=== PATIENT | female | born 1940 | race Hispanic/Latino ===

== ENCOUNTER 2022-04-24 18:45 | Observation (INO) | payer MEDICARE, OTHER ==
[~2022-04-24] VITALS: Ht 154.9 cm; Wt 69.9 kg
[2022-04-24 19:14] LABS: BASOPHILS % 0.5 % (0.0-1.0); EOSINOPHILS # (AUTO) 0.1 (0.0-0.4); EOSINOPHILS % 1.5 % (0.0-6.0); HEMATOCRIT 43.1 % (34.2-44.1); HEMOGLOBIN 14.2 g/dL (12.0-16.0); LYMPHOCYTES % 34.1 % (18.0-39.1); MEAN CORPUSCULAR HEMOGLOBIN 30.1 pg (28-32); MEAN CORPUSCULAR HGB CONC 32.9 g/dL (31-35); MEAN CORPUSCULAR VOLUME 91.5 fL (81-99); MONOCYTES # (AUTO) 0.7 (0.2-0.8); NEUTROPHILS # (AUTO) 4.8 (2.1-6.9); NEUTROPHILS % 55.3 % (38.7-80.0); PLATELET COUNT 154 x10e3/uL (140-360); RED BLOOD COUNT 4.71 x10e6/uL (3.6-5.1); RED CELL DISTRIBUTION WIDTH 12.7 % (11.7-14.4)
[2022-04-24] MEDS ORDERED: DIGOXIN 0.25 MG TAB PO STA (19:25)
[2022-04-24] MEDS ORDERED: DIGOXIN INJ 0.25 MG/ML 2 ML AMP IV STA (19:27)
[2022-04-24 19:33] LABS: ALANINE AMINOTRANSFERASE 12 IU/L (0-55); ALBUMIN/GLOBULIN RATIO 1.2 (0.8-2.0); ALKALINE PHOSPHATASE 85 IU/L (40-150); ANION GAP 17.8 mmol/L (8-16); BLOOD UREA NITROGEN 14 mg/dL (7-26); BUN/CREATININE RATIO 16 (6-25); CALCIUM 9.5 mg/dL (8.4-10.2); CARBON DIOXIDE 25 mmol/L (22-29); CHLORIDE 99 mmol/L (98-107); CREATINE KINASE 32 IU/L (29-168); CREATININE, SERUM 0.85 mg/dL (0.57-1.11); GLUCOSE 98 mg/dL (74-118); POTASSIUM 3.8 mmol/L (3.5-5.1); SODIUM 138 mmol/L (136-145)
[2022-04-24] MEDS ORDERED: DIGOXIN INJ 0.25 MG/ML 2 ML AMP ONE (19:39)
[2022-04-24 19:48] LABS: CREATINE KINASE MB < 1.00 ng/mL (0-4.3)
[2022-04-24] MEDS ORDERED: METOPROLOL TARTRATE INJ 1 MG/ML VIAL IV PRN (20:00)
[2022-04-24] MEDS: SODIUM CHLORIDE 0.9% 1000ML 1,000 ML IV SCH (20:19)
[2022-04-24] MEDS ORDERED: ELIQUIS5 M1 PO (22:24)
[2022-04-24] MEDS ORDERED: FUROSEMIDE40 MG PO (22:24)
[2022-04-24] MEDS ORDERED: LEVOTHYROXINE100 MCG PO (22:24)
[2022-04-24] MEDS ORDERED: ONDANSETRON HCL INJ 2MG/ML 2ML 2 MG/ML VIAL IV PRN (22:30)
[2022-04-24] MEDS ORDERED: ACETAMINOPHEN 325 MG TAB PO PRN (22:30)
[2022-04-24] MEDS ORDERED: LABETALOL HCL 5 MG/ML 20ML VIAL IV PRN (22:30)
[2022-04-24] MEDS: APIXABAN 5 MG TABLET PO SCH (23:44)
[2022-04-25] VITALS (11 sets, daily range): BP systolic 110–137; BP diastolic 50–66
[2022-04-25] MEDS: SODIUM CHLORIDE 0.9% 1000ML 1,000 ML IV SCH ×3 (05:23→23:53)
[2022-04-25 05:48] LABS: BASOPHILS % 0.4 % (0.0-1.0); EOSINOPHILS # (AUTO) 0.1 (0.0-0.4); EOSINOPHILS % 1.5 % (0.0-6.0); HEMATOCRIT 36.5 % (34.2-44.1); HEMOGLOBIN 12.1 g/dL (12.0-16.0); LYMPHOCYTES # (AUTO) 2.1 (1.0-3.2); LYMPHOCYTES % 39.4 % (18.0-39.1); MEAN CORPUSCULAR HEMOGLOBIN 29.6 pg (28-32); MEAN CORPUSCULAR HGB CONC 33.2 g/dL (31-35); MEAN CORPUSCULAR VOLUME 89.2 fL (81-99); MONOCYTES # (AUTO) 0.5 (0.2-0.8); MONOCYTES % 9.9 % (4.4-11.3); NEUTROPHILS # (AUTO) 2.6 (2.1-6.9); NEUTROPHILS % 48.1 % (38.7-80.0); PLATELET COUNT 146 x10e3/uL (140-360); RED BLOOD COUNT 4.09 x10e6/uL (3.6-5.1); RED CELL DISTRIBUTION WIDTH 12.8 % (11.7-14.4)
[2022-04-25] MEDS ORDERED: VITAMIN D362.5 MCG (06:10)
[2022-04-25] MEDS ORDERED: OMEPRAZOLE40 MG PO (06:10)
[2022-04-25] MEDS ORDERED: INDERAL XL80 MG PO (06:10)
[2022-04-25] MEDS ORDERED: NITROGLYCERIN0.4 MG SL (06:10)
[2022-04-25] MEDS ORDERED: ASPIRIN81 MG PO (06:10)
[2022-04-25 06:11] LABS: ALBUMIN 3.1 g/dL (3.5-5.0); ALBUMIN/GLOBULIN RATIO 1.2 (0.8-2.0); ANION GAP 13.8 mmol/L (8-16); CALCIUM 8.3 mg/dL (8.4-10.2); CREATININE, SERUM 0.64 mg/dL (0.57-1.11); POTASSIUM 3.8 mmol/L (3.5-5.1)
[2022-04-25 06:23] LABS: CHOL/HDL RATIO 3.1 (3.0-3.6)
[2022-04-25 06:37] LABS: FREE THYROXINE INDEX 2.5594 (1.4-3.8); THYROID STIMULATING HORMONE 0.964 uIU/mL (0.350-4.940)
[2022-04-25] MEDS: LEVOTHYROXINE SODIUM 100 MCG TAB PO SCH (07:30)
[2022-04-25 07:42] LABS: CREATINE KINASE MB 0.7 ng/mL (0-5.0)
[2022-04-25] MEDS: DOCUSATE SODIUM 100 MG CAP PO SCH (08:21)
[2022-04-25] MEDS: APIXABAN 5 MG TABLET PO SCH ×2 (08:22→16:55)
[2022-04-25] MEDS: FUROSEMIDE 40 MG TAB PO SCH (08:24)
[2022-04-25] MEDS: SENNOSIDES 8.6 MG TAB PO SCH (08:25)
[2022-04-25 14:16] LABS: CREATINE KINASE MB 0.6 ng/mL (0-5.0)
[2022-04-26 01:10] VITALS: BP 136/55
[2022-04-26 05:10] VITALS: BP 107/61
[2022-04-26 05:47] LABS: BASOPHILS % 0.5 % (0.0-1.0); EOSINOPHILS # (AUTO) 0.1 (0.0-0.4); HEMATOCRIT 35.8 % (34.2-44.1); HEMOGLOBIN 11.5 g/dL (12.0-16.0); LYMPHOCYTES # (AUTO) 1.9 (1.0-3.2); LYMPHOCYTES % 31.5 % (18.0-39.1); MEAN CORPUSCULAR HGB CONC 32.1 g/dL (31-35); MEAN CORPUSCULAR VOLUME 93.5 fL (81-99); MONOCYTES # (AUTO) 0.5 (0.2-0.8); MONOCYTES % 7.6 % (4.4-11.3); NEUTROPHILS # (AUTO) 3.5 (2.1-6.9); NEUTROPHILS % 57.7 % (38.7-80.0); PLATELET COUNT 137 x10e3/uL (140-360); RED BLOOD COUNT 3.83 x10e6/uL (3.6-5.1); RED CELL DISTRIBUTION WIDTH 12.8 % (11.7-14.4)
[2022-04-26 06:17] LABS: ANION GAP 12.6 mmol/L (8-16); CREATININE, SERUM 0.66 mg/dL (0.57-1.11); MAGNESIUM 1.8 MG/DL (1.3-2.1); POTASSIUM 3.6 mmol/L (3.5-5.1)
[2022-04-26] MEDS: SODIUM CHLORIDE 0.9% 1000ML 1,000 ML IV SCH (06:44)
[2022-04-26] MEDS: APIXABAN 5 MG TABLET PO SCH (08:31)
[2022-04-26] MEDS: SENNOSIDES 8.6 MG TAB PO SCH (08:31)
[2022-04-26] MEDS: LEVOTHYROXINE SODIUM 100 MCG TAB PO SCH (08:31)
[2022-04-26] MEDS: DOCUSATE SODIUM 100 MG CAP PO SCH (08:31)
[2022-04-26] MEDS: FUROSEMIDE 40 MG TAB PO SCH (08:32)
[2022-04-26 08:51] VITALS: BP 141/61
== END 2022-04-26 09:12 | disposition home or self-care (01) ==
LOC: ER 18:53 → ERHOLD 19:49 → MED/SURG3 23:06
PROVIDERS: ADMIT Internal Medicine; ATTEND Internal Medicine
DX: I47.9 Paroxysmal tachycardia, unspecified (principal); K21.9 Gastro-esophageal reflux disease without esophagitis; I10 Essential (primary) hypertension; E03.9 Hypothyroidism, unspecified; Z20.822 Contact with and (suspected) exposure to COVID-19; R00.2 Palpitations; E66.09 Other obesity due to excess calories; Z68.29 Body mass index [BMI] 29.0-29.9, adult
CPT/HCPCS: 0223U; 36415 ×3; 71045; 80048; 80053 ×2; 80061; 82550 ×2; 82553 ×2; 83735 ×2; 83880; 84436; 84443; 84479; 84484 ×2; 85025 ×3; 85379; 93005; 93306; 99284; G0378 ×3; J1160; J7030 ×3

== ENCOUNTER 2022-04-29 05:37 | Emergency (ER) | payer MEDICARE, OTHER ==
[~2022-04-29] VITALS: Ht 154.9 cm; Wt 69.9 kg
[~2022-04-29 05:37] MED LIST: ASPIRIN81 MG PO; ELIQUIS5 M1 PO; FUROSEMIDE40 MG PO; INDERAL XL80 MG PO; LEVOTHYROXINE100 MCG PO; NITROGLYCERIN0.4 MG SL; OMEPRAZOLE40 MG PO; VITAMIN D362.5 MCG
[2022-04-29] MEDS ORDERED: SODIUM CHLORIDE FLUSH 10 ML SYR IV PRN (06:00)
[2022-04-29 06:13] LABS: BASOPHILS % 0.4 % (0.0-1.0); EOSINOPHILS # (AUTO) 0.1 (0.0-0.4); EOSINOPHILS % 0.9 % (0.0-6.0); HEMATOCRIT 38.4 % (34.2-44.1); HEMOGLOBIN 13.2 g/dL (12.0-16.0); LYMPHOCYTES # (AUTO) 2.1 (1.0-3.2); LYMPHOCYTES % 26.4 % (18.0-39.1); MEAN CORPUSCULAR HGB CONC 34.4 g/dL (31-35); MEAN CORPUSCULAR VOLUME 87.3 fL (81-99); MONOCYTES # (AUTO) 0.6 (0.2-0.8); MONOCYTES % 7.6 % (4.4-11.3); NEUTROPHILS % 63.9 % (38.7-80.0); PLATELET COUNT 164 x10e3/uL (140-360); RED CELL DISTRIBUTION WIDTH 12.8 % (11.7-14.4)
[2022-04-29 06:32] LABS: ALBUMIN 3.7 g/dL (3.5-5.0); ALBUMIN/GLOBULIN RATIO 1.1 (0.8-2.0); ANION GAP 15.3 mmol/L (8-16); CALCIUM 9.2 mg/dL (8.4-10.2); CREATININE, SERUM 0.74 mg/dL (0.57-1.11); POTASSIUM 3.3 mmol/L (3.5-5.1)
[2022-04-29 06:33] LABS: CLARITY,URINE CLEAR (CLEAR); COLOR,URINE YELLOW (YELLOW); LEUKOCYTE ESTERASE ,URINE NEGATIVE (NEGATIVE); NITRITE,URINE NEGATIVE (NEGATIVE); PROTEIN,URINE DIPSTICK NEGATIVE (NEGATIVE)
[2022-04-29 06:34] LABS: KETONES,URINE TRACE (NEGATIVE); URINE UROBILINOGEN 1 mg/dL (0.2 - 1)
[2022-04-29 06:48] LABS: WBC,URINE (MAN) 0-5 /HPF (0-5)
[2022-04-29 06:49] LABS: BACTERIA,URINE RARE /HPF; EPITHELIAL CELLS,URINE RARE /LPF; RBC,URINE 0-5 /HPF (0-5)
[2022-04-29] MEDS ORDERED: POTASSIUM CHLORIDE 20 MEQ TAB CR PO STA (06:51)
[2022-04-29 07:55] VITALS: BP 126/54
== END 2022-04-29 08:10 | disposition home or self-care (01) ==
LOC: ER 05:43
DX: I47.1 Supraventricular tachycardia (principal); E87.6 Hypokalemia; E03.9 Hypothyroidism, unspecified; K21.9 Gastro-esophageal reflux disease without esophagitis
CPT/HCPCS: 36415; 71045; 80053; 81001; 83690; 84484; 85025; 93005; 99284

== ENCOUNTER → 2022-11-25 | Outpatient (CLI) | payer MEDICARE, OTHER | LOC: NM 09:57 | PROVIDERS: ATTEND Internal Medicine | DX: R79.1 Abnormal coagulation profile (principal) | CPT/HCPCS: 71046; 78580; A9540 ==